=== PATIENT | female | born 1965 | race Hispanic/Latino ===

== ENCOUNTER 2022-10-02 06:18 | Day surgery (SDC) | payer MEDICARE ==
[2022-09-26 12:55] LABS: BASOPHILS % (AUTO) 0.5 % (0.0-5.0); EOSINOPHILS % (AUTO) 3.2 % (0.0-8.0); HEMATOCRIT 42.1 % (36-48); LYMPHOCYTES % (AUTO) 33.1 % (21.0-51.0); MEAN CORPUSCULAR HEMOGLOBIN 29.1 pg (27.0-33.0); MEAN CORPUSCULAR HGB CONC 32.1 g/dL (32.0-36.0); MEAN CORPUSCULAR VOLUME 90.7 fL (79-99); MONOCYTES % (AUTO) 7.6 % (3.0-13.0); NEUTROPHILS % (AUTO) 55.2 % (40.0-77.0); PLATELET COUNT (AUTO) 333 K/uL (130-400); RED BLOOD CELL COUNT(AUTO) 4.64 MIL/uL (4.00-5.50); RED CELL DISTRIBUTION WIDTH 13.8 % (11.0-15.5); WHITE BLOOD COUNT (AUTO) 8.5 K/uL (4.8-10.8)
[2022-09-26 13:14] LABS: CREATININE 0.6 mg/dL (0.5-1.5); POTASSIUM 3.9 mmol/L (3.5-5.1)
[2022-09-29 09:35] VITALS: BP 215/82
[2022-10-02] VITALS (18 sets, daily range): BP systolic 122–149; BP diastolic 59–82
[~2022-10-02] VITALS: Ht 152.4 cm; Wt 122.6 kg
[~2022-10-02 06:18] MED LIST: HYDR12.54 PO; LISI5TAB21 PO
[2022-10-02] MEDS ORDERED: LACTATED RINGERS 1000ML 1,000 ML IV SCH (07:00)
[2022-10-02] MEDS ORDERED: CALDOLOR 800MG+NS 250ML 250 ML IV SCH (07:00)
[2022-10-02] MEDS: CEFAZOLIN SODIUM 1 GM VIAL IVPB SCH ×2 (07:00→08:00)
[2022-10-02] MEDS ORDERED: CEFAZOLIN SODIUM 2 GM VIAL ONE (07:25)
[2022-10-02] MEDS ORDERED: CEFAZOLIN SODIUM 1 GM VIAL ONE (07:25)
[2022-10-02] MEDS ORDERED: LIDOCAINE HCL MPF 1% 5ML VIAL ONE (07:35)
[2022-10-02] MEDS ORDERED: FENTANYL CITRATE PF 50 MCG/1 ML 2ML VIAL ONE ×2 (07:36→08:02)
[2022-10-02] MEDS ORDERED: MIDAZOLAM HCL 1 MG/ML 2ML VIAL ONE (07:36)
[2022-10-02] MEDS ORDERED: PROPOFOL 10 MG/ML 20ML VIAL IV ONE (07:36)
[2022-10-02] MEDS ORDERED: ONDANSETRON 4MG INJ ONE (07:36)
[2022-10-02] MEDS ORDERED: GLYCOPYRROLATE 1 MG/5 ML SYRINGE ONE (08:09)
[2022-10-02] MEDS ORDERED: EPHEDRINE SULFATE 50 MG/ML AMPULE ONE (08:10)
== END 2022-10-02 10:05 | disposition home or self-care (01) ==
LOC: DAH 06:18
PROVIDERS: ATTEND Obstetrics & Gynecology
DX: N95.0 Postmenopausal bleeding (principal); Z20.822 Contact with and (suspected) exposure to COVID-19; N84.0 Polyp of corpus uteri; R93.89 Abnormal findings on diagnostic imaging of other specified body structures; I10 Essential (primary) hypertension; E66.01 Morbid (severe) obesity due to excess calories; Z98.891 History of uterine scar from previous surgery; Z82.49 Family history of ischemic heart disease and other diseases of the circulatory system; Z83.3 Family history of diabetes mellitus; Z79.899 Other long term (current) drug therapy; Z68.43 Body mass index [BMI] 50.0-59.9, adult
CPT/HCPCS: 80048; 84703; 85025; 86850 ×2; 86900 ×2; 86901 ×2; 87426; 36415 ×2; 58558; 82948 ×2; 81025; A6260; A4663; J7030 ×2; A4351; A4355; J7120; J3010 ×2; J0690 ×2; J3490 ×3; J2250; J2704; J2405; J1741; A4215 ×2; A4223; A4222; A4221; A4600; A4510

== ENCOUNTER 2024-06-18 05:32 | Day surgery (SDC) | payer OTHER ==
[2024-06-18] VITALS (10 sets, daily range): BP systolic 95–138; BP diastolic 49–73; PULSE 60–72; RESP 15–18; TEMP 96.6–97.9
[~2024-06-18] VITALS: Ht 152.4 cm; Wt 125.6 kg
[~2024-06-18 05:32] MED LIST changes: +ATOR40TA69 PO; +LISI20TA24 PO; -LISI5TAB21 PO
[2024-06-18] MEDS: 0.9%NACL 1000ML 1,000 ML IV ONE (06:21)
[2024-06-18] MEDS ORDERED: proPOFol 10 MG/ML 20ML VIAL IV ONE (07:03)
[2024-06-18] MEDS ORDERED: LIDOCAINE HCL 400MG/20ML VIAL ONE (07:03)
== END 2024-06-18 08:25 | disposition home or self-care (01) ==
LOC: DAH 05:32 → ENDO 05:32
PROVIDERS: ATTEND Internal Medicine Gastroenterology
DX: Z12.11 Encounter for screening for malignant neoplasm of colon (principal); I10 Essential (primary) hypertension; E78.00 Pure hypercholesterolemia, unspecified; G47.33 Obstructive sleep apnea (adult) (pediatric); E66.01 Morbid (severe) obesity due to excess calories; Z80.0 Family history of malignant neoplasm of digestive organs; Z68.43 Body mass index [BMI] 50.0-59.9, adult; Z79.899 Other long term (current) drug therapy
CPT/HCPCS: 84703; 36415; 45378; J3490; J7030 ×2; J2704; A4620; A4215; A7002; G0121